=== PATIENT | male | born 1990 | race Caucasian/White ===

== ENCOUNTER 2019-08-10 04:24 | Emergency (ER) | payer SELFPAY ==
--- NOTE | 2019-08-10 04:51 | ER Document Report ---
ED Psych Disorder / Suicide - General Mode of Arrival: Medic Information source: Emergency Med Personnel <DELANEY ACEVEDO - Last Filed: 08/10/19 07:41> <INDIA PIMENTEL - Last Filed: 08/10/19 08:16> <LISA KIRK - Last Filed: 08/10/19 14:17> - General Chief Complaint: Psych Problem Stated Complaint: PSYCH Time Seen by Provider: 08/10/19 04:38 Notes: Patient is an approximately 26-year-old male of unknown identification presenting to the emergency department via EMS after he was found wandering around in the road naked. Patient has no personal belongings on him and no identification. According to EMS he was wandering around the road not making any sense and then became combative with them. He does smell of EtOH. He was given 10 mg of Valium by EMS for his aggressive behavior so at the time of my evaluation patient is resting with snoring respirations. He is maintaining 100% pulse oximetry on room air, his heart rate is 121 his respiratory rate is 23 and his blood pressure is 157/74. (DELANEY ACEVEDO) - Related Data Allergies/Adverse Reactions: No Known Allergies Allergy (Unverified 08/10/19 05:14) Past Medical History - General Information source: Patient - Social History Smoking Status: Current Some Day Smoker Frequency of alcohol use: Occasional Drug Abuse: Other - LSD Family History: Reviewed & Not Pertinent Patient has suicidal ideation: No Patient has homicidal ideation: No - Medical History Medical History: Negative Surgical Hx: Negative - Immunizations Immunizations up to date: Yes Hx Diphtheria, Pertussis, Tetanus Vaccination: Yes <DELANEY ACEVEDO - Last Filed: 08/10/19 07:41> Review of Systems - Review of Systems Constitutional: No symptoms reported EENT: No symptoms reported Cardiovascular: No symptoms reported Respiratory: No symptoms reported Gastrointestinal: No symptoms reported Genitourinary: No symptoms reported Male Genitourinary: No symptoms reported Musculoskeletal: No symptoms reported Skin: No symptoms reported Hematologic/Lymphatic: No symptoms reported Neurological/Psychological: See HPI <DELANEY ACEVEDO - Last Filed: 08/10/19 07:41> Physical Exam <DELANEY ACEVEDO - Last Filed: 08/10/19 07:41> - Vital signs Vitals: Resp Pulse Ox 18 97 08/10/19 04:24 08/10/19 04:24 - Notes Notes: PHYSICAL EXAMINATION: GENERAL: Well-appearing, well-nourished and in no acute distress. HEAD: Atraumatic, normocephalic. EYES: Pupils equal round and reactive to light, extraocular movements intact, sclera anicteric, conjunctiva are normal. ENT: Nares patent, oropharynx clear without exudates. Moist mucous membranes. NECK: Normal range of motion, supple without lymphadenopathy LUNGS: Breath sounds clear to auscultation bilaterally and equal. No wheezes rales or rhonchi. HEART: Regular rate and rhythm without murmurs ABDOMEN: Soft, nontender, nondistended abdomen. No guarding, no rebound. No masses appreciated. Musculoskeletal: Normal range of motion, no pitting or edema. No cyanosis. NEUROLOGICAL: Cranial nerves grossly intact. Normal speech, normal gait. Normal sensory, motor exams PSYCH: Normal mood, normal affect. SKIN: Warm, Dry, normal turgor, no rashes or lesions noted. (DELANEY ACEVEDO) Course - Laboratory Result Diagrams: 08/10/19 04:29 08/10/19 04:29 <DELANEY ACEVEDO - Last Filed: 08/10/19 07:41> - Laboratory Result Diagrams: 08/10/19 04:29 08/10/19 04:29 <INDIA PIMENTEL - Last Filed: 08/10/19 08:16> - Laboratory Result Diagrams: 08/10/19 04:29 08/10/19 04:29 <LISA KIRK - Last Filed: 08/10/19 14:17> - Re-evaluation Re-evalutation: 08/10/19 05:45 Patient is now awake, alert, gave us his name, date of and his father's contact information. Patient admits that his friend sent him what he thought was LSD. Patient reports after taking the drug he "blacked out" and had no idea what was going on. Patient does not recall any of the events of tonight. He is now alert, calm and cooperative. He is tearful. He will be medically cleared and then will await evaluation by our psychiatric team. He does report having i ssues with depression that he is never seen a medical provider for. He currently denies any suicidal or homicidal ideation. 08/10/19 07:42 Patient medically cleared. Pending psychiatric evaluation. (DELANEY ACEVEDO) Received report but the patient was discharged before I rounded on him. (LISA KIRK) - Vital Signs Vital signs: Temp Pulse Resp BP Pulse Ox 97.4 F 77 16 121/57 L 98 08/10/19 08:30 08/10/19 08:30 08/10/19 07:00 08/10/19 08:30 08/10/19 08:30 - Laboratory Laboratory results interpreted by me: 08/10/19 08/10/19 04:29 04:56 Glucose 127 H Urine Ascorbic Acid 40 H Salicylates < 1.0 L Acetaminophen < 10 L Discharge <DELANEY ACEVEDO - Last Filed: 08/10/19 07:41> <INDIA PIMENTEL - Last Filed: 08/10/19 08:16> <LISA KIRK - Last Filed: 08/10/19 14:17> - Discharge Clinical Impression: LSD reaction Condition: Stable Disposition: HOME, SELF-CARE Additional Instructions: You have been evaluated by both medical and behavioral health teams for LSD intoxication and have been deemed appropriate for discharge. While in the emergency department you received the following services: Medical screening and assessment, nursing services, dietary services, pharmacological services, one-on-one counseling and/or psychotherapy, environmental services, and continuous observation by a patient safety security officer. You have elected to voluntarily present to [facility] for treatment. You are highly encouraged to follow through with this treatment option. Getting high on acid (LSD) is also known as an "acid trip" or "psychedelic experience" and is technically termed LSD intoxication. During this period of intoxication, users experience a wide variety of effects, most often visual and other sensory distortions, changes to thought processes, intense emotions, including euphoria, and occasionally for some people, surprising new insights. An acid trip is a lengthy process, typically lasting 8 to 12 hours. With the distortions in time perception that occur as an effect of the drug, the experience can feel much longersome say they feel like it could last forever. This can be highly enjoyable when the mood of the user and those around is buoyant or contented, but extremely unsettling when thoughts and moods are low. AT ANY TIME, IF YOUR SYMPTOMS CHANGE SIGNIFICANTLY OR WORSEN OR YOU DEVELOP NEW SYMPTOMS, RETURN TO THE EMERGENCY DEPARTMENT IMMEDIATELY FOR RE-EVALUATION.
[2019-08-10 04:55] LABS: ABSOLUTE EOSINOPHILS # (AUTO) 0.3 10^3/uL (0.0-0.6); ABSOLUTE LYMPHOCYTES (AUTO) 1.6 10^3/uL (0.5-4.7); ABSOLUTE MONOCYTES (AUTO) 0.6 10^3/uL (0.1-1.4); BASOPHILS % (AUTO) 0.6 % (0-2); HEMATOCRIT 40.9 % (37.9-51.0); LYMPHOCYTES % (AUTO) 18.4 % (13-45); MEAN CORPUSCULAR HEMOGLOBIN 29.8 pg (27.0-33.4); MEAN CORPUSCULAR HGB CONC 34.3 g/dL (32.0-36.0); MEAN CORPUSCULAR VOLUME 87 fl (80-97); PLATELET COUNT 255 10^3/uL (150-450); RED CELL DISTRIBUTION WIDTH 13.2 % (11.5-14.0); TOTAL CELLS COUNTED % (AUTO) 100 %; WHITE BLOOD COUNT 8.6 10^3/uL (4.0-10.5)
[2019-08-10 05:06] LABS: ACETAMINOPHEN < 10 ug/mL (10-30); ALBUMIN 4.6 g/dL (3.5-5.0); ALCOHOL < 10 mg/dL (NONE DETECTED); ALKALINE PHOSPHATASE 117 U/L (38-126); ANION GAP 14 (5-19); ASPARTATE AMINO TRANSFERASE 23 U/L (17-59); BILIRUBIN,DIRECT 0.2 mg/dL (0.0-0.4); BILIRUBIN,TOTAL 0.3 mg/dL (0.2-1.3); BLOOD UREA NITROGEN 14 mg/dL (7-20); CALCIUM 9.2 mg/dL (8.4-10.2); CARBON DIOXIDE 22 mmol/L (22-30); CHLORIDE 104 mmol/L (98-107); GLUCOSE 127 mg/dL (75-110); SALICYLATE < 1.0 mg/dL (2.0-20.0); TOTAL PROTEIN 8.1 g/dL (6.3-8.2)
[2019-08-10 05:11] LABS: APPEARANCE,URINE SLIGHTLY-CLOUDY; BILIRUBIN,URINE NEGATIVE (NEGATIVE); COLOR,URINE YELLOW; GLUCOSE, URINE NEGATIVE (NEGATIVE); KETONES,URINE NEGATIVE (NEGATIVE); LEUKOCYTE ESTERASE,URINE NEGATIVE (NEGATIVE); NITRITE,URINE NEGATIVE (NEGATIVE); PROTEIN,URINE NEGATIVE (NEGATIVE); URINE SPECIFIC GRAVITY 1.024; UROBILINOGEN,URINE NEGATIVE mg/dL (<2.0)
[2019-08-10 05:23] LABS: URINE AMPHETAMINES SCREEN NEGATIVE; URINE BARBITURATES SCREEN NEGATIVE; URINE COCAINE SCREEN NEGATIVE; URINE MARIJUANA (THC) SCREEN NEGATIVE; URINE METHADONE SCREEN NEGATIVE; URINE PHENCYCLIDINE SCREEN NEGATIVE
[2019-08-10 05:26] LABS: URINE BENZODIAZEPINES SCREEN UNCONFIRMED POSITIVE
--- NOTE | 2019-08-10 05:48 | EKG REPORT ---
SEVERITY:- ABNORMAL ECG - SINUS TACHYCARDIA PROBABLE LEFT ATRIAL ABNORMALITY INCOMPLETE RIGHT BUNDLE BRANCH BLOCK : Confirmed by: Mily Pacheco MD 10-Aug-2019 05:47:03
[2019-08-10 08:35] VITALS: BP 121/57
--- NOTE | 2019-08-10 09:00 | PSYCHOLOGICAL NOTE ---
<INDIA PIMENTEL - Last Filed: 08/10/19 09:00> Psych Note - Psych Note Date seen by psych provider: 08/10/19 Time seen by psych provider: 07:55 Psych Note: Patient is a 28-year-old male who presents to ED via [facility] after he was found wandering the streets naked. Patient's identity was unknown when he presented to ED. Patient has no previous history with behavioral health. Per verbal report from attending physician, patient ingested Acid, and then got freaked out and asked father to bring him to ED. At some point during the drive to ED, patient got out of the car. [facility] later found patient wandering the streets naked. EMS administered benzos due to aggressive behaviors. After approximately an hour in the ED, patient was lucid, calm, and cooperative. Per [facility], patient has no criminal justice history. Patient states he has no memory of acid trip other than being afraid. Patient reports this is his second experience with LSD (Acid). Patient denies other substance use. Patient states he moved to [place], [place] from [place] to be with his dad. Patient had been taking care of his mother and grandparents in [place]. Patient denies prior mental health history, but spoke of taking antidepressants. Patient denies prior inpatient psychiatric hospitalizations. Patient reports a prior suicide attempt when he was 18 via OD on Nyquil. Patient did not recieve medical attention or inform anyone of attempt. Patient is tearful as he describes "issues" with chronic SI. Patient states he has "childhood issues (possible physical or sexual history) " and is "going through a bad time with family stuff." Patient is tearful as he speaks about not being able to talk to his dad or other family about his "mind stuff." Patient described concerns with existential concerns (identity and purpose). Patient has a family mental celeste history (mother and uncle) of paranoid schizophrenia. Patient is alert and oriented to person, place, time and circumstance. Mood is normal, tearful at times with congruent affect. Patient denies current suicidal and homicidal ideations. Patient reports chronic SI. Delusions are absent and behavior is congruent with an intact reality based presentation (i.e., organized and linear through processes). There is no observed behavior that suggests patient is responding to internal stimuli. Patient is able to engage in organized, rational thought processes. Patient is able to express needs and wants in a logical manner. Patient denies current auditory and visual hallucinations that are no associated with effects of LSD. Eye contact is appropriate. Conversational speech is within normal rate, tone, and prosody. Intellectual ability appears to be within average range. Attention and concentration are good. Insight, judgment and impulse control are currently poor. Impression/Plan: Patient is cleared from acute psychiatric services. Patient was found wandering the streets naked. During evaluation period, it was found that patient had ingested LSD. Patient reports being an infrequent user of LSD. As patient spoke with clinician, patient described depressive symptoms resulting from childhood issues and resulting current existential concerns. Patient voluntarily presented to [facility] for treatment. Dr. Sandhu was consulted on the care and management of this patient; attending physician is in agreement with recommendations and disposition. <SANTIAGO SANDHU - Last Filed: 08/10/19 11:48> Psych Note - Psych Note Psych Note: ADDENDUM TO IMPRESSION / PLAN: Patient denied current suicidal / homicidal ideation, intent or plan and reported his ongoing symptoms are a result of lifelong, chronic problems. Patient reported his current presentation is the result of using Acid and not systemic, thus does not feel he requires inpatient hospitalization or substance abuse rehabilitation. This clinician agrees at this time based on his recent and past history and collateral information, patient's ability to appropriately engage in conversation and demonstrate insight and better judgment that the previous evening, and his willingness to seek a short-term inpatient mental health facility to begin to address depression and start a medication regiment appropriate to his depressive symptoms.
== END 2019-08-10 08:54 | disposition home or self-care (01) ==
LOC: EDBD 04:24 → ER 04:24
DX: F16.90 Hallucinogen use, unspecified, uncomplicated (principal); F17.200 Nicotine dependence, unspecified, uncomplicated
CPT/HCPCS: 36415; 80053; 80307; 81001; 85025; 93005; 93010; 99285